=== PATIENT | female | born 1970 | race Caucasian/White ===

== ENCOUNTER 2019-08-22 12:55 | Emergency (ER) | payer BC, SELFPAY ==
[2019-08-22 12:57] VITALS: O2SAT 99
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
[2019-08-22] MEDS: Morphine 4 MG/ML Syringe IV ×2 (13:06→14:48)
[2019-08-22] MEDS: Ondansetron 4 MG/2 ML Vial IV (13:06)
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
[2019-08-22 13:14] VITALS: BP 148/90; PULSE 96; RESP 14; TEMP 36.8; O2SAT 100; BMI 26.0
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
[2019-08-22 14:19] VITALS: BP 143/87; PULSE 84; RESP 14; O2SAT 97
[2019-08-22 14:44] VITALS: BP 136/76; PULSE 77; RESP 17; TEMP 36.8; O2SAT 98
== END 2019-08-22 15:09 | disposition home or self-care (01) ==
PROVIDERS: Emergency Provider Emergency Medicine; PCP Family Medicine
DX: S20.219A Contusion of unspecified front wall of thorax, initial encounter (principal); S40.012A Contusion of left shoulder, initial encounter; S00.91XA Abrasion of unspecified part of head, initial encounter; V43.52XA Car driver injured in collision with other type car in traffic accident, initial encounter; Y93.9 Activity, unspecified; Y92.413 State road as the place of occurrence of the external cause; Y99.9 Unspecified external cause status; Z88.1 Allergy status to other antibiotic agents
CPT/HCPCS: 71045; 73060; 93005; 96374; 96375; 96376; 99285; A4216; J2405